=== PATIENT | male | born 1950 | race Caucasian/White ===

== ENCOUNTER 2016-05-18 19:42 | Observation (INO) | payer MEDICARE ==
[~2016-05-18] VITALS: Ht 177.8 cm; Wt 136.0 kg
[2016-05-18 19:44] VITALS: BP 152/77; PULSE 102; RESP 28; TEMP 98.8; O2SAT 94
[2016-05-18 19:56] VITALS: BP 152/77; PULSE 102; O2SAT 96
[2016-05-18] MEDS ORDERED: PRED10 PO (20:13)
[2016-05-18] MEDS ORDERED: ADVA500A INH (20:13)
[2016-05-18] MEDS ORDERED: HYDR-3580 PO (20:13)
[2016-05-18] MEDS ORDERED: ALBU.5I NEB (20:13)
[2016-05-18] MEDS ORDERED: IPRAAER INH (20:13)
[2016-05-18] MEDS ORDERED: SODIUM CHLORIDE 0.9% FLUSH 5 ML FLUSH IVF PRN (20:15)
[2016-05-18] MEDS ORDERED: methylPREDNISolone SOD SUCC 125 MG/2 ML VIAL IVP ONE (20:15)
--- NOTE | 2016-05-18 20:27 | PD ---
HPI Chief Complaint: Respiratory Symptoms Time Seen by Provider: 20:02 Travel History International Travel<30 days: No Contact w/Intl Traveler<30days: No Traveled to known affect area: No History of Present Illness HPI 65yo M with PMH of COPD here with sob for 2 days. States it feels like his COPD , gets it about 2 times a year. Used his pumps with no relieve today. + Productive cough. Denies any fever, chest pain, n/v, abdominal pain, focal weakness or numbness. Had been intubated once years ago. PFSH Past Medical History Asthma: Yes COPD: Yes Patient Takes Glucophage: No Tetanus Vaccination: < 5 Years Influenza Vaccination: Yes Social History Alcohol Use: Yes (6pk/wk) Tobacco Use: Yes Substance Use: No Allergies-Medications (Allergen,Severity, Reaction): Coded Allergies: No Known Allergies (Unverified , 05/18/16) Reported Meds & Prescriptions Reported Meds & Active Scripts Active Reported Hydrocodone-Acetaminophen 7.5-325 mg Tab 1 Tab PO DAILY PRN Combivent Respimat Inh (Ipratropium-Albuterol Inh) 20-100 Shelter/Act Aero 1 Puff INH QID Albuterol Neb (Albuterol Sulfate) 2.5 Mg/0.5 Ml Neb 2.5 Mg NEB QID NEB Note: The Albuterol Sulfate Inhalation Solution is concentrated and must be diluted. Read complete instructions carefully before using. Prednisone 10 Mg Tab 10 Mg PO DAILY Advair Diskus Inh (Fluticasone-Salmeterol Inh) 500-50 Mcg/Blist Aer 1 Puff INH BID Rinse mouth after use. Review of Systems Except as stated in HPI: all other systems reviewed are Neg Physical Exam Narrative GENERAL: 65yo M in mild distress. SKIN: Warm and dry. HEAD: Atraumatic. Normocephalic. NECK: Trachea midline. No JVD. CARDIOVASCULAR: Regular rate and rhythm. No murmur appreciated. RESPIRATORY: + accessory muscle use. Expiratory wheezing bilaterally. GASTROINTESTINAL: Abdomen soft, non-tender, nondistended. Hepatic and splenic margins not palpable. MUSCULOSKELETAL: No obvious deformities. No clubbing. No cyanosis. +Bilateral lower ext edema. NEUROLOGICAL: Awake and alert. No obvious cranial nerve deficits. Motor grossly within normal limits. Normal speech. PSYCHIATRIC: Appropriate mood and affect; insight and judgment normal. Data Data Last Documented VS Vital Signs Date Time Temp Pulse Resp B/P Pulse Ox O2 Delivery O2 Flow Rate FiO2 05/18/16 23:00 90 26 159/81 93 Nasal Cannula 2 05/18/16 19:44 98.8 Orders Complete Blood Count With Diff (05/18/16 20:08) Basic Metabolic Panel (Bmp) (05/18/16 20:08) B-Type Natriuretic Peptide (05/18/16 20:08) Magnesium (Mg) (05/18/16 20:08) Troponin I (05/18/16 20:08) Blood Culture (05/18/16 20:08) Iv Access Insert/Monitor (05/18/16 20:08) Ecg Monitoring (05/18/16 20:08) Oximetry (05/18/16 20:08) Oxygen Administration (05/18/16 20:08) Chest, Single Ap (05/18/16 20:08) Sodium Chloride 0.9% Flush (Ns Flush) (05/18/16 20:15) Methylprednisolone So Succ Inj (Solumedr (05/18/16 20:15) Albuterol-Ipratropium Neb (Duoneb Neb) (05/18/16 20:15) Lactic Acid Sepsis Protocol (05/18/16 20:09) Electrocardiogram (05/18/16 ) Arterial Blood Gas (Abg) (05/18/16 ) Albuterol Neb (Albuterol Neb) (05/18/16 22:30) Magnesium Sulfate 1 Gm Premix (Magnesium (05/18/16 23:30) Methylprednisolone So Succ Inj (Solumedr (05/19/16 00:00) Guaifenesin Er (Mucinex Er) (05/19/16 09:00) Albuterol-Ipratropium Neb (Duoneb Neb) (05/19/16 08:00) Albuterol-Ipratropium Neb (Duoneb Neb) (05/19/16 00:00) Place In Observation (05/18/16 ) Vital Signs (Adult) Q4H (05/18/16 23:47) Activity Oob Ad Becca (05/18/16 23:47) [employer] / Telemetry .CONTINUOUS (05/18/16 23:47) Diet Regular Basic (05/19/16 Breakfast) Sodium Chloride 0.9% Flush (Ns Flush) (05/19/16 00:00) Sodium Chloride 0.9% Flush (Ns Flush) (05/19/16 09:00) Ondansetron Inj (Zofran Inj) (05/19/16 00:00) Bisacodyl Supp (Dulcolax Supp) (05/19/16 00:00) Comprehensive Metabolic Panel (05/19/16 06:00) Complete Blood Count With Diff (05/19/16 06:00) Scd Bilateral/Knee High TAWNY.BID (05/18/16 23:47) Nixon Bilateral/Knee High TAWNY.QSHIFT (05/18/16 23:47) Acetaminophen (Tylenol) (05/19/16 00:00) Acetamin-Hydrocod 325-5 Mg ([place] 5-325 (05/19/16 00:00) Acetamin-Hydrocod 325-10 Mg ([place] 10-32 (05/19/16 00:00) Budeson-Formot 160-4.5 Mg Inh (Symbicort (05/19/16 09:00) Admit Order (Ed Use Only) (05/18/16 23:48) Labs Laboratory Tests Test 05/18/16 05/18/16 20:14 22:32 White Blood Count 12.8 TH/MM3 Red Blood Count 5.21 MIL/MM3 Hemoglobin 15.7 GM/DL Hematocrit 45.7 % Mean Corpuscular Volume 87.8 FL Mean Corpuscular Hemoglobin 30.1 PG Mean Corpuscular Hemoglobin 34.3 % Concent Red Cell Distribution Width 13.5 % Platelet Count 267 TH/MM3 Mean Platelet Volume 8.7 FL Neutrophils (%) (Auto) 62.7 % Lymphocytes (%) (Auto) 26.2 % Monocytes (%) (Auto) 5.1 % Eosinophils (%) (Auto) 5.4 % Basophils (%) (Auto) 0.6 % Neutrophils # (Auto) 8.0 TH/MM3 Lymphocytes # (Auto) 3.3 TH/MM3 Monocytes # (Auto) 0.6 TH/MM3 Eosinophils # (Auto) 0.7 TH/MM3 Basophils # (Auto) 0.1 TH/MM3 CBC Comment DIFF FINAL Differential Comment Sodium Level 137 MEQ/L Potassium Level 3.8 MEQ/L Chloride Level 101 MEQ/L Carbon Dioxide Level 28.3 MEQ/L Anion Gap 8 MEQ/L Blood Urea Nitrogen 12 MG/DL Creatinine 1.07 MG/DL Estimat Glomerular Filtration 70 ML/MIN Rate Random Glucose 166 MG/DL Lactic Acid Level 1.7 mmol/L Calcium Level 8.7 MG/DL Magnesium Level 2.2 MG/DL Troponin I LESS THAN 0.02 NG/ML B-Type Natriuretic Peptide 11 PG/ML Blood Gas Puncture Site RT RADIAL Blood Gas Patient Temperature 98.6 Blood Gas HCO3 28 mmol/L Blood Gas Base Excess 3.3 mmol/L Blood Gas Oxygen Saturation 88 % Arterial Blood pH 7.39 Arterial Blood Partial 47 mmHg Pressure CO2 Arterial Blood Partial 60 mmHG Pressure O2 Arterial Blood Oxygen Content 19.3 Vol % Arterial Blood 3.6 % Carboxyhemoglobin Arterial Blood Methemoglobin 2.3 % Blood Gas Hemoglobin 15.7 G/DL Oxygen Delivery Device NASAL CANNULA Blood Gas Liter Flow 1 L/M MDM Medical Decision Making Medical Screen Exam Complete: Yes Emergency Medical Condition: Yes Interpretation(s) EKG: Sinus tachycardia at 102bpm. No ST segment elevation or depression. Differential Diagnosis COPD exacerbation vs. CHF exacerbation vs. Pneumonia vs. ACS Narrative Course 65yo M with COPD here with bilateral wheezing. Pt used nebulizer treatments at home with no relief. Pt given duonebs x3, methylprednisolone 125mg IV and reevaluated at bedside. States he still does not feel better. Still wheezing bilaterally. Pt uses home O2 2L at home. Saturating 93-94% on 2L NC. CXR negative for pneumonia. Will give another albuterol neb and magnesium sulfate 1gm IV. Labs reviewed, mild leukocytosis at 12.8. Troponin negative. BNP 11. Lactic acid 1.7. ABG showed 88% Sat with [address] Discuss[address] with Dr. Aquino and accepted for observation for COPD exacerbation. Informed by nurse that pt is upset that he is not getting a bed upstairs so he wants to go home. Pt is signing out against medical advice. AMA: The risks of leaving against medical advice without further evaluation treatment were discussed with the patient. These risks include cardiac dysfunction, cardiac dysrhythmia, possible heart attack, possible stroke or . The patient indicated understanding of these risks and appeared to have the capacity to make this decision. Informed Dr. Aquino of this event. Diagnosis Primary Impression: COPD exacerbation Admitting Information Admitting Physician Requests: Observation Patient Instructions: General Instructions Departure Forms: Tests/Procedures Additional Instructions: Return to the ED if symptoms worsen or you change your mind. Med/Other Pt SpecificInfo: Prescription(s) given Scripts Prednisone 20 Mg Tab20 Mg PO BID 5 Days Ref 0 Prov:Coty Berrios DO 05/19/16 Albuterol 18 GM Inh (Ventolin Hfa 18 GM Inh)90 Mcg/Act Aer2 Puff INH Q4H PRN ( SHORTNESS OF BREATH) #1 INHALER Ref 0 Prov:Coty Berrios DO 05/19/16 Disposition: 07 AGAINST MEDICAL ADVICE Condition: Stable BerriosCoty DO May 18, 2016 20:27
[2016-05-18 20:42] LABS: BASOPHIL # 0.1 TH/MM3 (0-0.2); BASOPHIL % 0.6 % (0.0-2.0); EOSINOPHIL # 0.7 TH/MM3 (0-0.4); EOSINOPHIL % 5.4 % (0.0-4.0); HEMATOCRIT 45.7 % (39.0-51.0); HEMO FLAGS DIFF FINAL; LYMPH % 26.2 % (9.0-44.0); LYMPHOCYTE # 3.3 TH/MM3 (1.0-4.8); MEAN CELL VOLUME 87.8 FL (80.0-100.0); MEAN CORPUSCULAR HEMOGLOBIN 30.1 PG (27.0-34.0); MEAN CORPUSCULAR HGB CONC 34.3 % (32.0-36.0); MONO % 5.1 % (0.0-8.0); NEUT % 62.7 % (16.0-70.0); PLATELET COUNT 267 TH/MM3 (150-450); RED BLOOD COUNT 5.21 MIL/MM3 (4.50-5.90); RED CELL DISTRIBUTION WIDTH 13.5 % (11.6-17.2); WHITE BLOOD COUNT 12.8 TH/MM3 (4.0-11.0)
[2016-05-18] MEDS: RESP: ALBUTEROL 2.5 MG/IPRATROPIUM 0.5 MG NEB (SCH) INH (20:47)
--- NOTE | 2016-05-18 20:50 | RADRPT ---
EXAM DATE/TIME: 05/18/2016 20:36 [place] COMPARISON: No previous studies available for comparison. INDICATIONS : Shortness of breath, difficulty breathing for 1 week MEDICAL HISTORY : None. SURGICAL HISTORY : None. ENCOUNTER: Initial ACUITY: 1 day PAIN SCORE: 0/10 LOCATION: Bilateral chest FINDINGS: A single view of the chest demonstrates the lungs to be symmetrically aerated without evidence of mas s, infiltrate or effusion. The cardiomediastinal contours are unremarkable. Osseous structures are intact. CONCLUSION: No acute disease. Cuco Elizalde MD on May 18, 2016 at 20:48 Board Certified Radiologist. This report was verified electronically.
[2016-05-18 21:16] LABS: ANION GAP 8 MEQ/L (5-15); BICARBONATE 28.3 MEQ/L (21.0-32.0); BLOOD UREA NITROGEN 12 MG/DL (7-18); CHLORIDE 101 MEQ/L (98-107); GLOMERULAR FILTRATION RATE 70 ML/MIN (>89); MAGNESIUM 2.2 MG/DL (1.5-2.5); POTASSIUM 3.8 MEQ/L (3.5-5.1); SODIUM (NA) 137 MEQ/L (136-145)
[2016-05-18 21:22] VITALS: BP 147/72; PULSE 89; RESP 24; O2SAT 94
[2016-05-18] MEDS ORDERED: RESP: ALBUTEROL 2.5 MG/3 ML NEB (SCH) NEB ONE (22:30)
[2016-05-18 23:00] VITALS: BP 159/81; PULSE 90; RESP 26; O2SAT 93
[2016-05-18 23:22] LABS: BLOOD GAS BASE EXCESS 3.3 mmol/L (-2-2); BLOOD GAS CARBOXYHEMOGLOBIN 3.6 % (0-4); BLOOD GAS HCO3 28 mmol/L (22-26); BLOOD GAS METHEMOGLOBIN 2.3 % (0-2); BLOOD GAS O2 HGB SATURATION 88 % (90-100); BLOOD GAS OXYGEN CONTENT 19.3 Vol % (12.0-20.0); BLOOD GAS PCO2 47 mmHg (38-42); BLOOD GAS PO2 60 mmHG (61-120); BLOOD GAS TOTAL HGB 15.7 G/DL (12.0-16.0); TEMP CORR TO 98.6
[2016-05-18 23:23] LABS: CRITICAL VALUE YES; DRAW SITE RT RADIAL; LITER FLOW 1 L/M; NUMBER OF ARTERIAL PUNCTURES 1; OXYGEN DEVICE NASAL CANNULA; STAT YES; ULNAR PULSE PRESENT
[2016-05-18] MEDS ORDERED: MIDAZOLAM HCL 2 MG/2 ML VIAL IV PUSH ONE (23:30)
[2016-05-18] MEDS ORDERED: MAGNESIUM SULFATE 1 GM PREMIX 100 ML IV ONE (23:30)
--- NOTE | 2016-05-18 23:49 | HHI.HP ---
[facility] No Primary Care Physician Admission Diagnosis Diagnoses: Travel History International Travel<30 Days: No Contact w/Intl Traveler <30 Da: No Traveled to Known Affected Are: No Past Family Social History Allergies: Coded Allergies: No Known Allergies (Unverified , 05/18/16) Physical Exam Vital Signs Vital Signs Date Time Temp Pulse Resp B/P Pulse Ox O2 Delivery O2 Flow Rate FiO2 05/18/16 21:22 89 24 147/72 94 Nasal Cannula 1.5 05/18/16 20:35 96 Nasal Cannula 3 05/18/16 19:56 102 152/77 96 Nasal Cannula 3 05/18/16 19:49 96 Nasal Cannula 3 05/18/16 19:44 98.8 102 28 152/77 94 Physical Exam GENERAL: This is a well-nourished, well-developed patient, in no apparent distress. SKIN: No rashes, ecchymoses or lesions. Cool and dry. HEAD: Atraumatic. Normocephalic. No temporal or scalp tenderness. EYES: Pupils equal round and reactive. Extraocular motions intact. No scleral icterus. No injection or drainage. ENT: Nose without bleeding, purulent drainage or septal hematoma. Throat without erythema, tonsillar hypertrophy or exudate. Uvula midline. Airway patent. NECK: Trachea midline. No JVD or lymphadenopathy. Supple, nontender, no meningeal signs. CARDIOVASCULAR: Regular rate and rhythm without murmurs, gallops, or rubs. RESPIRATORY: Clear to auscultation. Breath sounds equal bilaterally. No wheezes , rales, or rhonchi. GASTROINTESTINAL: Abdomen soft, non-tender, nondistended. No hepato-splenomegaly , or palpable masses. No guarding. MUSCULOSKELETAL: Extremities without clubbing, cyanosis, or edema. No joint tenderness, effusion, or edema noted. No calf tenderness. Negative Homans sign bilaterally. NEUROLOGICAL: Awake and alert. Cranial nerves II through XII intact. Motor and sensory grossly within normal limits. Five out of 5 muscle strength in all muscle groups. Normal speech. Laboratory Laboratory Tests Test 05/18/16 05/18/16 20:14 22:32 White Blood Count 12.8 Red Blood Count 5.21 Hemoglobin 15.7 Hematocrit 45.7 Mean Corpuscular Volume 87.8 Mean Corpuscular Hemoglobin 30.1 Mean Corpuscular Hemoglobin 34.3 Concent Red Cell Distribution Width 13.5 Platelet Count 267 Mean Platelet Volume 8.7 Neutrophils (%) (Auto) 62.7 Lymphocytes (%) (Auto) 26.2 Monocytes (%) (Auto) 5.1 Eosinophils (%) (Auto) 5.4 Basophils (%) (Auto) 0.6 Neutrophils # (Auto) 8.0 Lymphocytes # (Auto) 3.3 Monocytes # (Auto) 0.6 Eosinophils # (Auto) 0.7 Basophils # (Auto) 0.1 CBC Comment DIFF FINAL Differential Comment Sodium Level 137 Potassium Level 3.8 Chloride Level 101 Carbon Dioxide Level 28.3 Anion Gap 8 Blood Urea Nitrogen 12 Creatinine 1.07 Estimat Glomerular Filtration 70 Rate Random Glucose 166 Lactic Acid Level 1.7 Calcium Level 8.7 Magnesium Level 2.2 Troponin I LESS THAN 0.02 B-Type Natriuretic Peptide 11 Blood Gas Puncture Site RT RADIAL Blood Gas Patient Temperature 98.6 Blood Gas HCO3 28 Blood Gas Base Excess 3.3 Blood Gas Oxygen Saturation 88 Arterial Blood pH 7.39 Arterial Blood Partial 47 Pressure CO2 Arterial Blood Partial 60 Pressure O2 Arterial Blood Oxygen Content 19.3 Arterial Blood 3.6 Carboxyhemoglobin Arterial Blood Methemoglobin 2.3 Blood Gas Hemoglobin 15.7 Oxygen Delivery Device NASAL CANNULA Blood Gas Liter Flow 1 Date/Time Procedure Status Source Growth 05/18/16 20:24 Aerobic Blood Culture Received Blood Peripheral Pending 05/18/16 20:24 Anaerobic Blood Culture Received Blood Peripheral Pending Result Diagram: 05/18/16201305/18/162013 Lona Aquino MD May 18, 2016 23:49
[2016-05-19] MEDS ORDERED: RESP: ALBUTEROL 2.5 MG/IPRATROPIUM 0.5 MG NEB (PRN) NEB
[2016-05-19] MEDS ORDERED: ACETAMINOPHEN 325 MG TAB PO PRN
[2016-05-19] MEDS ORDERED: SODIUM CHLORIDE 0.9% FLUSH 5 ML FLUSH FLUSH PRN
[2016-05-19] MEDS ORDERED: ACETAMINOPHEN/HYDROcodone 325 MG/10 MG TAB PO PRN
[2016-05-19] MEDS ORDERED: ONDANSETRON HCL 4 MG/2 ML VIAL IVP PRN
[2016-05-19] MEDS ORDERED: methylPREDNISolone SOD SUCC 40 MG/1 ML VIAL IV PUSH SCH
[2016-05-19] MEDS ORDERED: ACETAMINOPHEN/HYDROcodone 325 MG/5 MG TAB PO PRN
[2016-05-19] MEDS ORDERED: BISACODYL 10 MG SUPP PR PRN
[2016-05-19] MEDS ORDERED: VENTAER INH (01:08)
[2016-05-19] MEDS ORDERED: PRED20 PO (01:08)
[2016-05-19] MEDS ORDERED: RESP: ALBUTEROL 2.5 MG/IPRATROPIUM 0.5 MG NEB (SCH) NEB (08:00)
--- NOTE | 2016-05-19 08:41 | EKG ---
Date Performed: 05/18/2016 Time Performed: 19:50:42 PTAGE: 65 years EKG: SINUS TACHYCARDIA BORDERLINE RIGHT AXIS DEVIATION ABNORMAL RHYTHM ECG WARNING: DATA QUALITY MAY AFFECT INTERPRETATION NO PREVIOUS TRACING DOCTOR: Darwin Chaney Interpretating Date/Time 05/19/2016 08:38:05
[2016-05-19] MEDS ORDERED: BUDESONIDE-FORMOTEROL 160/4.5 MCG INHALER INH SCH (09:00)
[2016-05-19] MEDS ORDERED: guaiFENesin E.R. 600 MG TAB PO SCH (09:00)
[2016-05-19] MEDS ORDERED: SODIUM CHLORIDE 0.9% FLUSH 5 ML FLUSH FLUSH SCH (09:00)
== END 2016-05-19 01:24 | disposition left against medical advice (07) ==
LOC: NEPC 19:42 → NEDA 23:50
PROVIDERS: ADMIT Hospitalist; ATTEND Hospitalist
DX: J44.1 Chronic obstructive pulmonary disease with (acute) exacerbation (principal); J45.909 Unspecified asthma, uncomplicated; D72.829 Elevated white blood cell count, unspecified; R94.31 Abnormal electrocardiogram [ECG] [EKG]; Z72.0 Tobacco use; Z99.81 Dependence on supplemental oxygen
CPT/HCPCS: 36600; 71010; 80048; 82805; 83605; 83735; 83880; 84484; 85025; 87040; 93005; 94640; 94664; 96374; 99284; G0378; J2930; J3475; J7613